=== PATIENT | female | born 1990 | race Two or more races ===

== ENCOUNTER 2017-11-18 12:18 | Inpatient (IN) | payer OTHER ==
[~2017-11-18] VITALS: Ht 157.5 cm; Wt 59.0 kg
--- NOTE | 2017-11-18 14:05 | NUR ---
PRE ASSESSMENT: Pt is A/O X4. Her gait is steady. She presents blunted with depressed mood. She denies S/I and H/I. She denies previous treatment or detox in the past. She reports using Xanax 3 mg PO daily as prescribed x 4 years. Last uses this am 1 mg. Heroin 1 Gm smoking daily X 1 month. Last used this AM.Prior to 1 month ago she states she was taking 15 tablets a day of [place] or Percocet or both. She states she doesn't know how many mg. She denies Sz hx. She denies Allergies. She reports Lupus,Asthma,Migraines, and anxiety. Will assess on unit.
[2017-11-18] MEDS ORDERED: MAG HYDROX/AL HYDROX/SIMETH 30 ML LIQUID UDC PO PRN (14:15)
[2017-11-18] MEDS ORDERED: DICYCLOMINE HCL 20 MG TABLET PO PRN (14:15)
[2017-11-18] MEDS ORDERED: LORAZEPAM 2 MG/1 ML VIAL IM PRN (14:15)
[2017-11-18] MEDS ORDERED: LORAZEPAM 1 MG TABLET PO PRN (14:15)
[2017-11-18] MEDS ORDERED: MAGNESIUM HYDROXIDE 30 ML LIQUID UDC PO PRN (14:15)
[2017-11-18] MEDS ORDERED: ONDANSETRON 4 MG/2 ML VIAL IM PRN (14:15)
[2017-11-18] MEDS ORDERED: CLONIDINE HCL 0.1 MG TABLET PO PRN (14:15)
[2017-11-18] MEDS ORDERED: LOPERAMIDE HCL 2 MG CAPSULE PO PRN ×2 (14:15)
[2017-11-18] MEDS ORDERED: ONDANSETRON ODT 4 MG TAB.RAPDIS SL PRN (14:15)
[2017-11-18] MEDS ORDERED: BUPRENORPHINE HCL 2 MG TAB.SUBL SL PRN (14:15)
[2017-11-18] MEDS ORDERED: MIRALAX 17 GM POWD.PACK PO PRN (14:15)
[2017-11-18 15:03] VITALS: BP 132/89
[2017-11-18 15:21] LABS: BASOPHILS % (AUTO) 0.3 % (0.0-2.0); EOSINOPHILS % (AUTO) 0.6 % (0.0-7.0); HEMOGLOBIN 13.5 g/dL (10.9-14.3); LYMPHOCYTES # (AUTO) 1.2 K/uL (20.0-40.0); LYMPHOCYTES % (AUTO) 27.1 % (20.5-51.5); MEAN CORPUSCULAR HEMOGLOBIN 32.7 uug (24.7-32.8); MEAN CORPUSCULAR HGB CONC 33 g/dL (32.3-35.6); MEAN CORPUSCULAR VOLUME 99.4 fL (75.5-95.3); MONOCYTES # (AUTO) 0.5 K/uL (2.0-10.0); NEUTROPHILS # (AUTO) 2.8 K/uL (1.8-8.9); PLATELET COUNT (AUTO) 338 K/uL (179-408); RED BLOOD CELL COUNT(AUTO) 4.13 MIL/uL (3.63-4.92); WHITE BLOOD COUNT (AUTO) 4.5 K/uL (3.8-11.8)
[2017-11-18 15:25] LABS: *URINE HCG, QUAL NEGATIVE (NEGATIVE)
[2017-11-18 15:27] LABS: ALANINE AMINOTRANSFERASE 25 U/L (14-59); ALKALINE PHOSPHATASE 74 U/L (50-136); ASPARTATE AMINOTRANSFERASE 16 U/L (15-37); BILIRUBIN,TOTAL 0.3 mg/dL (0.2-1.0); CARBON DIOXIDE 27 mmol/L (21-32); CHLORIDE 98 mmol/L (98-107); CREATININE 0.6 mg/dL (0.6-1.3); GLUCOSE 75 mg/dL (74-106); POTASSIUM 3.1 mmol/L (3.5-5.1); TOTAL PROTEIN, SERUM 8.6 g/dL (6.4-8.2); UREA NITROGEN, BLOOD 9 mg/dL (7-18)
[2017-11-18 15:34] LABS: ETHANOL < 3 MG/DL (0-0)
[2017-11-18 15:38] LABS: *AMPHETAMINE, URINE POSITIVE (NEGATIVE); *BARBITURATE, URINE NEGATIVE (NEGATIVE); *CANNABINOID, URINE NEGATIVE (NEGATIVE); *COCCAINE, URINE NEGATIVE (NEGATIVE); *OPIATE, URINE POSITIVE (NEGATIVE); *PHENCYCLIDINE SCREEN,URINE NEGATIVE (NEGATIVE)
[2017-11-18] MEDS ORDERED: IPRA12.9 INH (15:51)
--- NOTE | 2017-11-18 15:57 | NUR ---
ADMISSION: Pt admitted for medically supervised withdrawal of Benzo and Opiates. Her skin is warm dry and intact. and UDS collected. She is currently mildly intoxicated with pin point pupils,slightly slurred speech and slumped posture. Her gait is steady. She is A/O x 4. Her mood is apathetic and her affect congruent. No CIWA or COWS performed due to mild intoxication. She denies S/I and H/I. No Hx of Psychiatric hospitalization. BP 132/89 P 94 T 98.4 R 16 O2 sat 98% SUBSTANCE USE HISTORY: She reports using Xanax 3 mg PO daily as prescribed x 4 years. Last uses this am 1 mg. Heroin 1 Gm smoking daily X 1 month. Last used this AM 1 Gm. Prior to 1 month ago she states she was taking 15 tablets a day of [place] or Percocet or both. She states she doesn't know how many mg. She used the pills for 4 years until a month ago when she started smoking Heroin. She is positive for Amphetamines but denies using any amphetamines ever that she is aware of. Pt states she has tried to stop on her own and her withdrawal symptoms are too much for her to handle. She states she experiences sweats,chills,N/V,diarrhea,body aches and H/A. She has no treatment history. She states she has a 4 yr old daughter which is her motivation to stop using and live a clean life. She also has a fiance and the drug use has caused problems in the relationship along wit financial problems. 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 Her PCP is in [place] Dr Saeed Jimenez. She reports no allergies. She denies Seizure Hx. PMH includes Lupus(remission),Asthma,Anxiety(Xanax prescribed) ,migraines and insomnia. She takes no home medications except a rescue inhaler which she brought in. Oriented Pt to staff and unit. Will continue to monitor and offer safe and supportive environment.
[2017-11-18 16:00] VITALS: BP 116/75
--- NOTE | 2017-11-18 16:35 | NUR ---
PRN Ativan 1 mg po ,Robaxin and Motrin given for reported anxiety,mild agitation,body aches and H/A 5/10 on scale.CIWA 5. Will monitor effectiveness of PRN
[2017-11-18] MEDS: LORAZEPAM 1 MG TABLET PO PRN ×2 (16:36→23:28)
[2017-11-18] MEDS: METHOCARBAMOL 750 MG TABLET PO PRN (16:36)
[2017-11-18] MEDS: IBUPROFEN 600 MG TABLET PO PRN (16:36)
--- NOTE | 2017-11-18 17:35 | NUR ---
FABIO Ativan effective. MALLORY 3. She states she feels better and is laying in bed watching TV. Addendum: 11/18/17 at 1903 by CHAD ALBERT RN FABIO Motrin and Robaxin also effective. Pt denies pain at this time.
--- NOTE | 2017-11-18 19:16 | NUR ---
END OF SHIFT: Pt tan admitted. She is layin in bed watching TV. She was placed on a Phenobarbital/Subutex taper to manage s/s of w/d. Last CIWA 3 no s/s of Opiate w/d at this time. Will pass shift report to oncoming night nurse.
--- NOTE | 2017-11-18 19:30 | NUR ---
START OF SHIFT Received 27 year old female patient admitted on 11/18/17 for Benzodiazepine and Heroin withdrawal. Pt is alert and oriented x4. Pt noted to be drowsy and lethargic. She is arousable to name. Pt is scheduled to start a 5 day Phenobarbital and 5 day Subutex taper tomorrow 11/19/17. She received PRN Robaxin and Motrin. COWS was not assessed by AM shift nurse d/t pt was intoxicated upon admission and not experiencing opiate withdrawal. Last CIWA:3 at 1735. Breathing is even and unlabored, safety measures in place. Will monitor.
[2017-11-18 20:00] VITALS: BP 97/60
--- NOTE | 2017-11-18 20:00 | NUR ---
COWS/CIWA Unable to accurately assess COWS and CIWA. Pt noted to be drowsy and lethargic and is lying in bed asleep. Will continue to monitor.
[2017-11-18] MEDS ORDERED: POTASSIUM CHLORIDE 20 MEQ TAB.PRT.SR PO ONE (23:00)
[2017-11-18 23:25] VITALS: BP 96/58
--- NOTE | 2017-11-18 23:25 | NUR ---
PRN BENADRYL/ATIVAN Pt complains of anxiety, lightheadedness and difficulty falling asleep. CIWA:8. PRN Benadryl and Ativan 1 mg administered as ordered. Will monitor effectiveness.
--- NOTE | 2017-11-18 23:25 | NUR ---
COWS/CIWA Pt denies opiate withdrawals. Pt states " I'm not having opiate withdrawals right now." Pt reports anxiety, restlessness, lightheadedness, and inability to fall asleep. MALLORY: 8. Will monitor.
--- NOTE | 2017-11-18 23:28 | NUR ---
ONE TIME K-DUR Pt's potassium level = 3.1. MD with new order for K-DUR 40meQ. Medication administered as ordered. Will continue to monitor.
[2017-11-18] MEDS: diphenhydrAMINE 50 MG CAPSULE PO PRN (23:29)
--- NOTE | 2017-11-19 00:25 | NUR ---
PRN BENADRYL/ATIVAN REASSESSMENT PRN medication effective. Pt is lying in bed with eyes closed noted to be asleep. Breathing is even and unlabored, safety measures in place. Will continue to monitor.
[2017-11-19 04:01] VITALS: BP 98/58
--- NOTE | 2017-11-19 04:01 | NUR ---
COWS/CIWA DEFERRED Pt is lying in bed with eyes closed noted to be asleep. Breathing is even and unlabored, safety measures in place. Will continue to monitor.
--- NOTE | 2017-11-19 07:09 | NUR ---
END OF SHIFT Pt is a 27 year old female patient admitted on 11/18/17 for Benzodiazepine and Heroin withdrawal. Pt remains alert and oriented x4. Pt complained of anxiety, restlessness and difficulty sleeping. She reported that she was not experiencing opiate withdrawals during the shift. She is scheduled to start a 5 day Phenobarbital and 5 day Subutex taper today (11/19/17). At 2328 she received PRN Ativan 1 mg and Benadryl. She slept a total of 10 hrs, Intake: 500mL, Void: x1, BM:0, CIWA:8 at 2328. Unable to assess COWS during shift d/t pt denied opiate withdrawals. Breathing is even and unlabored, safety measures in place. Endorsed to AM shift.
[2017-11-19 08:00] VITALS: BP 117/80
[2017-11-19] MEDS: FOLIC ACID 1 MG TABLET PO SCH (08:04)
[2017-11-19] MEDS: MULTIVITAMINS,THERAPEUTIC TABLET PO SCH (08:04)
[2017-11-19] MEDS: THIAMINE HCL 100 MG TABLET PO SCH (08:04)
--- NOTE | 2017-11-19 08:12 | NUR ---
START OF SHIFT: Received Pt A/O X4. She states she has been awake most of night with very poor sleep. She presents with moist skin. Moderately dilated pupils noted. She reports stomach cramps,body aches,sweats,chills,restlessness and anxiety.Poor appetite noted. CIWA 17 COWS 19. PRN Ativan 2 mg po given. Subutex 4 mg SL PRN given to manage s/s of w/d.PPD planted to LFA. Encouraged rest and increased fluids today. Will continue to monitor and provide safe and supportive environment.
[2017-11-19] MEDS ORDERED: TUBERCULIN,PURIF.PROT.DERIV. 5 TU/0.1 ML TEST ID ONE (09:00)
[2017-11-19] MEDS ORDERED: 6 DAY PHENOBARBITAL TAPER -SERENITY PROTOCOL PO PRN (09:00)
[2017-11-19] MEDS ORDERED: PHENOBARBITAL 60 MG TABLET PO SCH (09:00)
--- NOTE | 2017-11-19 09:10 | NUR ---
Pt states the Subutex and Ativan PRN were mildly effective. COWS 14 CIWA 15. Will continue to monitor and medicate as ordered.
[2017-11-19] MEDS: PHENOBARBITAL 60 MG TABLET PO SCH ×3 (10:20→21:24)
[2017-11-19] MEDS: BUPRENORPHINE HCL 2 MG TAB.SUBL SL SCH ×4 (10:21→21:27)
[2017-11-19] MEDS: IBUPROFEN 600 MG TABLET PO PRN (11:13)
[2017-11-19] MEDS: CLONIDINE HCL 0.1 MG TABLET PO PRN (11:13)
[2017-11-19] MEDS: METHOCARBAMOL 750 MG TABLET PO PRN ×2 (11:13→21:24)
--- NOTE | 2017-11-19 11:15 | NUR ---
PRN Bentyl,Robaxin,Motrin, and Clonidine given for reported stomach cramps,muscle aches,h/a 5/10 on pain scale and anxiety. Will monitor effectiveness of PRNS.
[2017-11-19 12:00] VITALS: BP 111/67
--- NOTE | 2017-11-19 12:15 | NUR ---
PRN meds effective. Pt states her H/A is gone and she feels a little better. Will continue to monitor and manage s/s of w/d.
[2017-11-19 16:00] VITALS: BP 100/60
--- NOTE | 2017-11-19 18:39 | NUR ---
END OF SHIFT: Pt started on Pheno/Subutex taper today to manage s/s of w/d which include anxiety,sweats, chills, body aches,stomach cramps and restlessness. She presents with anxious mood and congruent affect. Last CIWA 14 COWS 13. She was given Ativan and Subutex PRN early this AM which was mildly effective. She was given PRN Bentyl,Motrin,Clonidine and Robaxin this afternoon to assist in managing symptoms which were effective. She was compliant with rest and increased fluids today. [facility].
--- NOTE | 2017-11-19 19:30 | NUR ---
START OF SHIFT Pt is a 27 y/o female admitted on 11/18/17 for opiate and benzo withdrawal. Pt continues with a 5 day Phenobarbital and 5 day Subutex taper, tolerating well. Last COWS 13 and CIWA 14. PRN Subutex, Bentyl, Clonidine, Motrin, and Robaxin were administered during the day with medication, noted to be effective. Upon rounds Pt was found laying in bed with eyes closed, room was unkempt, food and drinks noted throughout cluster on bedside table. Medications due. Safety measures in place. Call light within reach. Will continue to monitor
[2017-11-19 20:30] VITALS: BP 126/77
[2017-11-19] MEDS ORDERED: PATIENT MAY USE OWN MED- MD OK INH SCH (21:00)
[2017-11-19] MEDS: diphenhydrAMINE 50 MG CAPSULE PO PRN (21:24)
[2017-11-20 00:20] VITALS: BP 100/61
[2017-11-20] MEDS: IBUPROFEN 600 MG TABLET PO PRN ×2 (00:36→08:43)
[2017-11-20] MEDS: HYDROXYZINE PAMOATE 25 MG CAPSULE PO PRN ×2 (00:37→12:14)
--- NOTE | 2017-11-20 00:37 | NUR ---
PRN Medication Administration Patient noted awake and verbalizing of increased restless legs with increased pain and anxiety. PRN Motrin and Vistaril administered. Will continue to monitor.
--- NOTE | 2017-11-20 01:28 | NUR ---
PRN Medication Reassessment Patient is noted in bed sleeping. breathing even and non labored. No signs of restlessness noted. PRN Motrin and Vistaril noted to be effective. Will continue to monitor.
[2017-11-20] MEDS ORDERED: IPRATROPIUM BROMIDE 0.5 MG/2.5 ML NEBU NEB SCH (01:30)
--- NOTE | 2017-11-20 04:00 | NUR ---
VITALS REFUSED COWS and CIWA DEFERRED Pt noted in bed with eyes closed. Attempted to run vitals, Pt refused. Respiration rate 16. Cows and CIWA unable to be completed per order. Safety measures in place. Call light within reach. Will continue to monitor. Addendum: 11/20/17 at 0428 by CISCO JERONIMO RN Amended: Links added.
--- NOTE | 2017-11-20 07:25 | NUR ---
END OF SHIFT Pt is a 27 y/o female admitted on 11/18/17 for opiate and benzo withdrawal. Pt continues with a 5 day Phenobarbital and 5 day Subutex taper, tolerating well. Pt presented with agitation, restlessness, anxiety, body aches, headache, room was unkempt, food and drinks noted throughout cluster on bedside table. Scheduled medications and PRN Robaxin, Vistaril, Motrin, and Benadryl were administered. Medications effective as verbalized by Pt. Last COWS 10 CIWA 13. Pt slept 9 hours. Intake 1000mls, void x 1, stool x 0. Safety measures in place. Call light within reach. Will continue to monitor. Pt's needs have been met. Endorsed to the day shift nurse.
[2017-11-20 08:00] VITALS: BP 100/60
[2017-11-20] MEDS ORDERED: IPRATROPIUM BROMIDE 0.5 MG/2.5 ML NEBU NEB PRN (08:00)
--- NOTE | 2017-11-20 08:19 | NUR ---
START OF SHIFT: Received Pt A/O X4. She states she slept well with the help of Benadryl given last night. She presents with anxious mood and congruent affect. She reports anxiety,restlessness,intermittent sweats and chills and body aches. CIWA 15 COWS 12. Will administer PRN Motrin and Robaxin to assist in managing body aches. Encouraged increased fluids. Encouraged group attendance to improve coping skills and prevent relapse. Will continue to monitor and provide safe and supportive environment.
[2017-11-20] MEDS: METHOCARBAMOL 750 MG TABLET PO PRN (08:43)
[2017-11-20] MEDS: THIAMINE HCL 100 MG TABLET PO SCH (08:43)
[2017-11-20] MEDS: FOLIC ACID 1 MG TABLET PO SCH (08:43)
[2017-11-20] MEDS: PHENOBARBITAL 60 MG TABLET PO SCH ×4 (08:43→20:16)
[2017-11-20] MEDS: MULTIVITAMINS,THERAPEUTIC TABLET PO SCH (08:43)
[2017-11-20] MEDS: BUPRENORPHINE HCL 2 MG TAB.SUBL SL SCH ×3 (08:44→20:16)
--- NOTE | 2017-11-20 09:19 | NUR ---
PRN Motrin and Robaxin effective. pt states her body aches have lessened. Will continue to monitor and offer support.
[2017-11-20 10:10] LABS: HEPATITIS B SURFACE AG Negative (Negative)
--- NOTE | 2017-11-20 11:02 | NUR ---
Endorsed Pt to staff nurse. All pertinent information discussed fr continuity of care.
[2017-11-20 12:00] VITALS: BP 121/84
--- NOTE | 2017-11-20 12:00 | NUR ---
COW's/CIWA assessment COW's 11/ CIWA 12. Pt. presents with anxiety, restlessness, HR of 103, dilated pupils, body aches, and some nasal congestion. Pt. compliant with medication regiment. Pt. Given PRN Vistaril, and Clonidine at this time to help with her withdrawal symptoms.
[2017-11-20] MEDS: CLONIDINE HCL 0.1 MG TABLET PO PRN ×2 (12:13→20:17)
--- NOTE | 2017-11-20 12:13 | NUR ---
PRN Medication Pt. presents with increased anxiety at this time. Pt. in bed constantly moving, and states " I have this sense of dread and it's making me very anxious." Pt. given PRN Vistaril 50mg and Clonidine 0.1mg at this time to help manage her symptoms. Will continue to monitor pt.'s behavior for medication effectiveness and safety.
[2017-11-20 12:25] LABS: BILIRUBIN,TOTAL 0.4 mg/dL (0.2-1.0); CREATININE 0.7 mg/dL (0.6-1.3); MAGNESIUM 1.7 mg/dL (1.8-2.4); POTASSIUM 3.9 mmol/L (3.5-5.1); TOTAL PROTEIN, SERUM 8.3 g/dL (6.4-8.2)
--- NOTE | 2017-11-20 12:50 | NUR ---
PRN Re-Assessment Pt. in bed with eyes closed. No signs of acute distress noted no signs of SOB noted. Medication effective. Will continue to monitor pt.'s behavior for safety.
[2017-11-20] MEDS ORDERED: MAGNESIUM OXIDE 400 MG TABLET PO ONE (13:00)
[2017-11-20 16:00] VITALS: BP 97/58
--- NOTE | 2017-11-20 16:00 | NUR ---
COW's/CIWA assessment COW's 11/ CIWA 11. Pt. presents with anxiety, restlessness, fine hand tremors, and body aches. Pt. compliant with medication regiment and treatment plan at this time. Will continue to monitor pt.'s behavior for safety.
--- NOTE | 2017-11-20 16:27 | NUR ---
Client was prompted to attend twice daily group therapy sessions.
--- NOTE | 2017-11-20 19:10 | NUR ---
End of Shift Note Pt. is a 27 y/o female admitted for the medically managed withdrawal from opiates and benzodiazepines. Pt. was placed on a 5 day subutex taper and 5 day phenobarbital taper to managed withdrawal symptoms. Pt. compliant with treatment plan and medication regiment. Throughout shift pt. was noted at continually anxious, restless, with fine hand tremors and body aches. Pt. was given PRN Motrin, Robaxin, Clonidine, and Vistaril to manage withdrawal symptoms. Last COW's 11 and CIWA 11 at 1600. Safety measures in place. Will endorse pt.'s care to oncoming shift.
--- NOTE | 2017-11-20 19:30 | NUR ---
Start of Shift Patient Received. Patient is noted in her room, awake, alert, verbally responsive, and watching TV. Patient is able to verbalize "my anxiety is high. It has been high all day. It is really the only thing that is bothering me." Encouraged patient to possibly get out of her room, walk around, go outside for fresh air to eliminate anxiety prior to medication. Patient verbalized understanding. Per endorsement, patient continues on a 5 day Phenobarbital and 5 day Subutex taper. she was given PRN Vistaril, Clonidine, and Motrin with medications noted to be effective. Patient also noted to be High risk for AMA due patient stating medications were not effective in minimizing anxiety. Last noted COWS 11 and CIWA 11. All needs attended to promptly.
[2017-11-20 20:07] VITALS: BP 110/74
[2017-11-20] MEDS: diphenhydrAMINE 50 MG CAPSULE PO PRN (20:16)
--- NOTE | 2017-11-20 20:20 | NUR ---
PRN Medication Administration/MD Communication Patient is noted verbalizing increase chills and sweats, pulse rate between 81-100, tremulous to touch, frequently shifting, mild discomfort, yawning, and verbalizing increased anxiety. She is also verbalizing inability of falling asleep. Patient states "i feel like my biggest problems now is my anxiety and my insomnia." Patient is able to explain "the Benadryl helped me last night but I still dont feel rested in the morning." Explained to patient the Psychiatrist would be made aware. Patient verbalized understanding. She also verbalized of scant bleeding while urination. No pain or discomfort during urination. no frequency or noted urgency of urination verbalized. Patient states "I dont know if it is because of menstruation." Relayed to MD with order for Urine analysis. COWS 10 and CIWA 15. PRN Clonidine and Benadryl administered with routine medications. Patient verbalized understanding of providing urine sample. Will continue to monitor.
--- NOTE | 2017-11-20 21:20 | NUR ---
PRN Medication Reassessment Patient is noted in bed with eyes closed. Breathing even and non labored. No signs restlessness noted. No facial grimacing noted. PRN Clonidine and Benadryl noted to be effective. Will continue to monitor.
[2017-11-21 00:39] VITALS: BP 98/71
--- NOTE | 2017-11-21 00:41 | NUR ---
COWS and CIWA Assessment Patient is noted in bed sleeping. She is able to be aroused upon entering room. Explained to patient vitals were ordered to be rendered. Vitals rendered. patient is noted to fall asleep easily. Unable to complete CIWA or COWS assessment due to patient falling asleep. Will continue to monitor.
[2017-11-21 04:15] VITALS: BP 97/53
--- NOTE | 2017-11-21 04:15 | NUR ---
COWS and CIWA Assessment Patient is noted in bed sleeping but aroused to verbal stimuli. Breathing even and non labored. Explained to patient that vitals were ordered. Vitals rendered. Unable to complete COWS and CIWA due to patient sleeping. Will continue to monitor.
--- NOTE | 2017-11-21 07:08 | NUR ---
End of Shift Patient is noted in bed with her eyes closed. Breathing even and non labored. Patient continues on modified Phenobarbital taper and Subutex taper. She was noted verbalizing increased chills and sweats, increased anxiety, restlessness and verbalizing insomnia. PRN Clonidine and Benadryl administered with medications noted to be effective. Encouraged patient to get out of her room, walk around, go outside fro fresh air due to patient being isolative and causing increased anxiety. Last noted COWS 10 and CIWA 15. Patient noted to sleep 8 hours. All needs attended to promptly. Will endorse to continue plan of care as ordered.
--- NOTE | 2017-11-21 07:15 | NUR ---
Start Of Shift Patient is a 27 yr old female who was admitted to [facility] on 11/18/17 for a medically supervised withdrawal from Opiates ( Heroin) and Benzodiazepines( Xanax), she has been placed on a 5 day Phenobarbital taper and 5 day Subutex taper and this is day 3. She is awake in bed at this time and voices complaints of having blood on toilet paper after she wipes after urinating, Urine specimen obtained and sent to lab for urinalysis, she denies any pain or discomfort in area. PRN meds given on PM shift : Clonidine and Benadryl, last COWS 10 and CIWA 15 and she slept for 8 hours. Will continue to follow MD plan of care and offer support as needed.
--- NOTE | 2017-11-21 07:20 | NUR ---
Start of shift: Patient is a 27 yr old female who was admitted to [facility] on 11/18/17 for a medically supervised withdrawal from Opiates ( Heroin) and benzodiazepines ( Xanax). She has been placed on a 5 day Phenobarbital taper and 5 day Subutex taper and this is day
[2017-11-21 08:00] VITALS: BP 107/69
--- NOTE | 2017-11-21 08:00 | NUR ---
COWS 17 Patient's withdrawal symptoms present as severe anxiety, bilateral hand tremors, back and generalized muscle aches, sensitivity to light, encouraged patient to attend groups today and learn new coping skills and ways to manage anxiety without pharmaceutical aids, she agreed.
[2017-11-21 08:05] LABS: *BILIRUBIN,URIN NEGATIVE (NEGATIVE); *BLOOD, URINE Trace-lysed (NEGATIVE); *CLARITY,URINE CLOUDY (CLEAR); *COLOR,URINE YELLOW (YELLOW); *KETONES,URINE NEGATIVE (NEGATIVE); *PROTEIN,URINE 1+ (NEGATIVE); *UROBILINOGEN,URINE 0.2 E.U./dl (NORMAL); LEUKOCYTE ESTERASE ,URINE 3+ (NEGATIVE); NITRITE, URINE NEGATIVE (NEGATIVE); PH,URINE 8.5 (5.0-8.0); UGLUCOSE NEGATIVE (NEGATIVE)
[2017-11-21 08:07] LABS: BACTERIA,URINE FEW /HPF (NONE SEEN); SQUAMOUS EPITHELIAL CELL,UR MANY /HPF (NONE SEEN)
--- NOTE | 2017-11-21 08:20 | NUR ---
PRN Motrin/Robaxin Motrin 600MG PO and Robaxin 750 MG PO given for complaints of generalized body aches and back ache, pain level 7/10 will monitor and reassess
[2017-11-21] MEDS: MULTIVITAMINS,THERAPEUTIC TABLET PO SCH (08:21)
[2017-11-21] MEDS: METHOCARBAMOL 750 MG TABLET PO PRN (08:21)
[2017-11-21] MEDS: THIAMINE HCL 100 MG TABLET PO SCH (08:21)
[2017-11-21] MEDS: IBUPROFEN 600 MG TABLET PO PRN ×2 (08:21→14:22)
[2017-11-21] MEDS: FOLIC ACID 1 MG TABLET PO SCH (08:21)
[2017-11-21] MEDS: PHENOBARBITAL 60 MG TABLET PO SCH ×3 (08:22→20:57)
[2017-11-21] MEDS ORDERED: BUPRENORPHINE HCL 2 MG TAB.SUBL SL SCH (09:00)
--- NOTE | 2017-11-21 09:20 | NUR ---
PRN Reassess Motrin 600 MG PO and Robaxin 750 MG PO effective per pt report for easing joint and muscle pain , pain level now 3/10 will continue to monitor
--- NOTE | 2017-11-21 10:30 | NUR ---
PRN Vistaril Vistaril 50 MG PO given for reports of increased anxiety and agitation, will continue to assess and monitor
[2017-11-21] MEDS: HYDROXYZINE PAMOATE 25 MG CAPSULE PO PRN (10:31)
--- NOTE | 2017-11-21 11:30 | NUR ---
PRN Reassess Patient states that Vistaril 50 MG PO was effective in reducing her anxiety, she was able to go to group and interact with her peers.
[2017-11-21 12:00] VITALS: BP 123/73
--- NOTE | 2017-11-21 12:10 | NUR ---
COWS 11/ CIWA 16 Patient presents with increased agitation and anxiety , restlessness, general body aches, bilateral hand tremors and lethargy. Motrin, Robaxin and Vistaril were given in AM with positive effects in reducing general pain and anxiety levels.
--- NOTE | 2017-11-21 14:20 | NUR ---
PRN Medication Motrin 600 MG PO and Tylenol 650 MG PO given for complaints of headache and sinus discomfort 10/12 Clonidine 0.1mg PO given for reports of increased anxiety, will continue to assess and monitor
[2017-11-21] MEDS: ACETAMINOPHEN 325 MG TABLET PO PRN (14:22)
[2017-11-21] MEDS: BUPRENORPHINE HCL 2 MG TAB.SUBL SL SCH ×2 (14:23→20:58)
[2017-11-21] MEDS: CLONIDINE HCL 0.1 MG TABLET PO PRN ×2 (14:23→20:58)
--- NOTE | 2017-11-21 15:20 | NUR ---
PRN Reassess Patient states she feels less sinus pressure so motrin and tylenol effective, clonidine also effective in reducing anxiety per pt report
[2017-11-21 16:00] VITALS: BP 117/58
--- NOTE | 2017-11-21 16:00 | NUR ---
COWS 9/ CIWA 15 Patient presents with increased agitation and anxiety , restlessness, general body aches,sinus pressure, bilateral hand tremors and lethargy. Motrin, Tylenol and Clonidine were given in afternoon with positive effects in reducing general pain and anxiety levels.
--- NOTE | 2017-11-21 18:51 | NUR ---
End Of Shift: Patient is a 27 yr old female admitted to [facility] on 11/18/17 for a medically supervised withdrawal from heroin and Xanax. She is on a 5 day phenobarbital taper and 5 day Subutex taper and this is day3. She has been more active today and has attended all groups and has been interacting with her peers. PRN medication given today : Motrin, Robaxin, Vistaril, Tylenol and clonidine. her withdrawal symptoms present as severe anxiety, bilateral hand tremors, body aches, stuffy nose and irritability. She had a fluid intake of 1800 ML, 4 voids and 0 BM .Last COWS 9 and CIWA 15 @ 1600. Continue to follow MD plan of care and offer support as needed. Endorsed to night baker.
[2017-11-21 19:19] LABS: *BILIRUBIN,URIN NEGATIVE (NEGATIVE); *BLOOD, URINE 2+ (NEGATIVE); *CLARITY,URINE SLIGHTLY CLOUDY (CLEAR); *COLOR,URINE YELLOW (YELLOW); *KETONES,URINE TRACE (NEGATIVE); *PROTEIN,URINE NEGATIVE (NEGATIVE); *UROBILINOGEN,URINE 0.2 E.U./dl (NORMAL); LEUKOCYTE ESTERASE ,URINE 3+ (NEGATIVE); NITRITE, URINE NEGATIVE (NEGATIVE); UGLUCOSE NEGATIVE (NEGATIVE)
--- NOTE | 2017-11-21 19:30 | NUR ---
Start of shift Patient Received. Patient is noted in the activities room participating in a group meeting. Per endorsement, patient continues on a modified Phenobarbital and Subutex tapers. patient was noted participating in group and social activities. PRN Motrin x2, Robaxin, Vistaril, Tylenol and Clonidine with medications noted to be effective. Orders for UA with Urine collected with no new orders noted. Will follow up with MD. Last noted COWS 9 and CIWA 15. All needs attended to promptly. Will continue plan of care as ordered.
[2017-11-21 19:50] LABS: BACTERIA,URINE MODERATE /HPF (NONE SEEN); MUCUS,URINE MANY /LPF (0-FEW); SQUAMOUS EPITHELIAL CELL,UR MODERATE /HPF (NONE SEEN); WBC,URINE 80-100 /HPF (0-3)
[2017-11-21 20:28] VITALS: BP_SYST 113; BP_DIAS 60; BP_DIAS 70
[2017-11-21] MEDS: diphenhydrAMINE 50 MG CAPSULE PO PRN (20:57)
--- NOTE | 2017-11-21 21:00 | NUR ---
PRN Medication Administration Patient is noted verbalizing inability of falling asleep, increased anxiety, increased chills and sweats. COWS noted to be 9 and CIWA 11. PRN Benadryl and Clonidine administered with routine medications. Will continue to monitor.
--- NOTE | 2017-11-21 22:00 | NUR ---
PRN Medication Reassessment Patient is noted in bed with eyes closed. breathing even and non labored. Patient received PRN Clonidine and Benadryl with medication noted to be effective. No facial grimacing or restlessness noted. Will continue to monitor.
[2017-11-22 00:45] VITALS: BP 104/60
--- NOTE | 2017-11-22 00:46 | NUR ---
COWS and CIWA Assessment patient is noted in bed with eyes closed. Breathing even and non labored. upon entering room patient is able to be aroused to verbal stimuli. explained to patient that vitals were ordered. Vitals rendered. She was noted to easily fall back to sleep with no complications noted. No facial grimacing or restlessness noted. CIWA and COWS not able to be completed as per order. Will continue to monitor.
[2017-11-22 04:24] VITALS: BP 107/68
[2017-11-22] MEDS: HYDROXYZINE PAMOATE 25 MG CAPSULE PO PRN ×2 (04:27→23:00)
[2017-11-22] MEDS: METHOCARBAMOL 750 MG TABLET PO PRN ×2 (04:27→21:08)
--- NOTE | 2017-11-22 04:30 | NUR ---
PRN Medication Administration Patient is noted awake and verbalizing increased anxiety and increased body aches. PRN Vistaril and Robaxin administered. Will continue to monitor.
--- NOTE | 2017-11-22 05:30 | NUR ---
PRN Medication Administration Patient is noted in bed awake alert and verbally responsive. Breathing even and non labored. patient received PRN Vistaril and Robaxin for increased anxiety and muscle cramps. Patient is able to verbalize "I feel much better. the medication helped." Medications noted to be effective. Will continue to monitor. Addendum: 11/22/17 at 0700 by TAMIKA TAMEZ LVN PRN MEDICATION REASSESSMENT
--- NOTE | 2017-11-22 07:16 | NUR ---
End of Shift Patient is noted in bed, awake, alert and verbally responsive. Breathing even and non labored. Patient continues on a modified Phenobarbital and Subutex tapers. Patient was noted to be compliant with group and social activities prior to bed. Patient requires further education on coping skills to manage anxiety. PRN Benadryl Clonidine, Vistaril and Robaxin administered with medications noted to be effective. Last noted CIWA 9 and COWS 7. Patient noted to sleep a total of 7 hours. All needs attended to promptly. Will continue plan of care as ordered.
--- NOTE | 2017-11-22 07:53 | NUR ---
BEGINNING OF SHIFT Patient endorsement report received from operations supervisor 2nd shift nurse, all pertinent information was discussed. Patient with admitting Dx: Opiate/BZO withdrawal. Continues on 5 day phenobarbital and 5 day Subutex taper as ordered, patient is scheduled to begin day: 4 of taper. Patient slept for a total of 7 hours, per operations supervisor 2nd shift noted with poor sleep, will notify psychiatrist. Patient with last CIWA score of: 9, and last cow score of: 7. patient received PRN:Benadryl, clonidine, Vistaril and Robaxin as ordered medication effective. Patient received awake, alert and oriented x4, educated regarding plan of care for the day and mediation regimen with good verbal understanding. Safety measures in place, call light kept with in reach. will continue to monitor closely.
[2017-11-22 08:46] VITALS: BP 93/64
--- NOTE | 2017-11-22 09:00 | NUR ---
COW/CIWA ASSESSMENT patient awake, alert and oriented x4, in room, noted with avoidant eye contact, has sad and irritable facial expression. Noted with flat affect, labile mood. Patient continues on 5 day phenobarbital taper and 5 day Subutex, continues on day 4 of taper. Patient presented with the following s/sx of withdrawal: c/o chills, difficulty sitting still, restless, enlarged pupils, bone and joint aches, moist eyes, tremors, yawning, anxiety, irritability, difficulty concentrating, difficulty sleeping, frequent nocturnal awakenings, generalized discomfort, and increased emotional amplitude. Patient with COW score of: 9, and CIWA score of: 11. Encouraged to increase PO fluid intake as tolerated. Encouraged to attend group therapies/sessions to learn new coping skills to prevent relapse. safety measures in place. call light kept with in reach, will continue to monitor.
[2017-11-22] MEDS: PHENOBARBITAL 60 MG TABLET PO SCH ×2 (09:14→21:08)
[2017-11-22] MEDS: THIAMINE HCL 100 MG TABLET PO SCH (09:14)
[2017-11-22] MEDS: FOLIC ACID 1 MG TABLET PO SCH (09:14)
[2017-11-22] MEDS: BUPRENORPHINE HCL 2 MG TAB.SUBL SL SCH ×3 (09:14→21:09)
[2017-11-22] MEDS: MULTIVITAMINS,THERAPEUTIC TABLET PO SCH (09:14)
--- NOTE | 2017-11-22 13:00 | NUR ---
COW/CIWA ASSESSMENT Patient continues to exhibit the following s/sx of withdrawal: c/o chills, difficulty sitting still, restless, enlarged pupils, bone and joint aches, moist eyes, tremors, yawning, anxiety, irritability, difficulty concentrating, difficulty sleeping, frequent nocturnal awakenings, generalized discomfort, and increased emotional amplitude. Patient with COW score of: 9, and CIWA score of: 11. Scheduled medications administered as ordered, will continue to monitor.
[2017-11-22 13:26] VITALS: BP 122/78
--- NOTE | 2017-11-22 15:51 | NUR ---
PSYCHIATRIST COMMUNICATION Dr. Quintana notified that patient is having difficulty staying asleep, wakes up frequently, and difficulty falling asleep. Patient reported to nurse, that in the past she has taken Trazodone unknown strength for insomnia, and it has been effective. As per Dr. Quintana ok for patient to begin Trazodone 100 mg PO HS PRN, for insomnia. Dr. Quintana unable to input orders into [id number] at this time, order was read back and verified by dr. Quintana, noted and carried out.
[2017-11-22 16:40] VITALS: BP 122/78
--- NOTE | 2017-11-22 17:01 | NUR ---
COW/CIWA ASSESSMENT Patient continues to exhibit the following s/sx of withdrawal: c/o chills, difficulty sitting still, restless, enlarged pupils, bone and joint aches, moist eyes, tremors, yawning, anxiety, irritability, difficulty concentrating, difficulty sleeping, frequent nocturnal awakenings, generalized discomfort, and increased emotional amplitude. Patient with COW score of: 9, and CIWA score of: 11. Will continue to monitor.
--- NOTE | 2017-11-22 18:57 | NUR ---
END OF SHIFT Patient alert and oriented x4, monitored closely during shift. Patient continues with ongoing Subutex and phenobarbital taper as ordered. Admitting Dx: Opiate/bzo withdrawal. Noted with avoidant eye contact, has sad and irritable facial expression. Noted with flat affect, labile mood. Patient presented with the following s/sx of withdrawal: c/o chills, difficulty sitting still, restless, enlarged pupils, bone and joint aches, moist eyes, tremors, yawning, anxiety, irritability, difficulty concentrating, difficulty sleeping, frequent nocturnal awakenings, generalized discomfort, and increased emotional amplitude. Patient with COW score of: 9, and CIWA score of: 11.Encouraged to develop coping skills and utilization of non pharmacological interventions. Adequate PO fluid intake encouraged as tolerated. patient endorsed to shift foreman nurse, all pertinent information was discussed.
--- NOTE | 2017-11-22 19:10 | NUR ---
START OF SHIFT Patient is a 27-year-old female admitted on 11/18/17 for benzo and opiate withdrawal. Patient is currently on a 5-day Phenobarbital taper and a 5-day Subutex taper, tolerating well; today is day 4 of both tapers. Per endorsement, patient's last COWS was 10, last CIWA was 11. Patient received no PRN medications during day shift. Patient currently has urine cultures pending to rule out UTI. Upon assessment, patient appears disheveled, hair and make-up are untidy. Patient is alert and oriented x4, complaining of increased anxiety and generalized body aches, 7/10 on pain scale. Patient states that PRN Benadryl "had been working for the first few nights, but it stopped working last night and I couldn't really sleep." Patient is currently on fall and seizure precautions with no history of seizure. Safety measures are in place, side rails up x2, bed locked in low position, call light within reach. Will continue to monitor.
[2017-11-22 20:00] VITALS: BP 128/81
--- NOTE | 2017-11-22 20:00 | NUR ---
COWS 11 & CIWA 11 Patient currently has a COWS of 11 and a CIWA score of 11. Patient reports increased anxiety, agitation, intermittent diaphoresis, body aches, and difficulty sleeping. SN to administer meds as ordered. Will continue to monitor.
[2017-11-22] MEDS ORDERED: TRAZODONE 100 MG TABLET PO PRN (21:00)
--- NOTE | 2017-11-22 21:08 | NUR ---
PRN ROBAXIN & TRAZODONE Patient reports body aches 7/10 and difficulty sleeping. PRN Robaxin and PRN Trazodone both given PO. Safety measures in place, side rails up x2, bed locked in low position, call light within reach. Will monitor for effectiveness.
--- NOTE | 2017-11-22 22:08 | NUR ---
PRN ROBAXIN & TRAZODONE REASSESSMENT Patient reports body aches have improved, now /. Patient states that she feels sleepy. PRN medications noted to be effective at this time. Safety measures in place, side rails up x2, bed locked in low position, call light within reach. Will continue to monitor.
[2017-11-22] MEDS: CLONIDINE HCL 0.1 MG TABLET PO PRN (23:00)
--- NOTE | 2017-11-22 23:00 | NUR ---
PRN VISTARIL & CLONIDINE Patient reports anxiety, agitation, and restlessness. PRN Vistaril and Clonidine given PO. Safety measures in place, side rails up x2, bed locked in low position, call light within reach. Will monitor for effectiveness.
[2017-11-23] VITALS: BP 78/46
--- NOTE | 2017-11-23 | NUR ---
PRN REASSESSMENT, COWS & CIWA Patient reports decreased anxiety, agitation, and restlessness. PRN medications noted to be effective. Current COWS score is 10, CIWA score is 10. Patient reports mild anxiety, mild body aches, and mild symptoms due to PRN medication effectiveness. Safety measures in place, side rails up x2, bed locked in low position, call light within reach. Will continue to monitor.
[2017-11-23 04:00] VITALS: BP 84/52
--- NOTE | 2017-11-23 04:00 | NUR ---
COWS & CIWA DEFERRED COWS and CIWA deferred at this time due to patient sleeping; to be assessed while patient is awake, per protocol. Safety measures in place, side rails up x2, bed locked in low position, call light within reach. Will continue to monitor.
--- NOTE | 2017-11-23 07:04 | NUR ---
END OF SHIFT Patient is a 27-year-old female admitted on 11/18/17 for benzo and opiate withdrawal. Patient is currently on a 5-day Phenobarbital taper and a 5-day Subutex taper, tolerating well; today will be the last day of both tapers. Patient's last COWS was 10, last CIWA was 10. Patient received PRN Robaxin, Trazodone, Vistaril, and Clonidine; all noted to be effective. Patient slept for 7 hours, total intake of 1,710mL, void x2, stool x0. Patient's urine cultures are still pending. Patient is currently on fall and seizure precautions with no history of seizure. Safety measures are in place, side rails up x2, bed locked in low position, call light within reach. Will endorse to day shift.
[2017-11-23 07:16] LABS: CREATININE 0.7 mg/dL (0.6-1.3); MAGNESIUM 1.9 mg/dL (1.8-2.4); POTASSIUM 3.8 mmol/L (3.5-5.1)
--- NOTE | 2017-11-23 07:20 | NUR ---
Start Of Shift Patient is a 27 yr old female [facility] a medically supervised withdrawal from Opiates ( heroin) and benzodiazepines ( Xanax), she has been placed on a 5 day Phenobarbital taper and 5 day Subutex taper and today is day 5. She has a past medical history of Lupus which is in remission.She is awake at this time just after having a shower, she voices that she still has anxiety but it is controlled with Vistaril and Clonidine. PRN medications given on PM shift : Vistaril, Clonidine, Robaxin and Trazodone. She slept for 7 hours and her last COWS was 10 and CIWA 10 on PM shift. Continue to follow MD plan of care and offer support as needed.
[2017-11-23 08:00] VITALS: BP 106/60
--- NOTE | 2017-11-23 08:00 | NUR ---
COWS 7 / CIWA 10 Patients withdrawal symptoms include increased anxiety, tachycardia, restlessness, difficulty staying asleep, and joint pain. PRN Robaxin given along with warm packs for the hip pain along with scheduled Phenobarbital and Subutex. will monitor
[2017-11-23] MEDS: MULTIVITAMINS,THERAPEUTIC TABLET PO SCH (08:19)
[2017-11-23] MEDS: THIAMINE HCL 100 MG TABLET PO SCH (08:19)
[2017-11-23] MEDS: METHOCARBAMOL 750 MG TABLET PO PRN ×2 (08:19→16:52)
[2017-11-23] MEDS: FOLIC ACID 1 MG TABLET PO SCH (08:19)
--- NOTE | 2017-11-23 08:20 | NUR ---
PRN Robaxin Robaxin 750 MG PO given for muscle aches in left hip 12/12, will reassess
[2017-11-23] MEDS ORDERED: TRAZODONE 100 MG TABLET PO PRN (08:45)
[2017-11-23] MEDS ORDERED: BUPRENORPHINE HCL 2 MG TAB.SUBL SL SCH (09:00)
[2017-11-23] MEDS ORDERED: PHENOBARBITAL 60 MG TABLET PO SCH (09:00)
--- NOTE | 2017-11-23 09:20 | NUR ---
PRN Reassess Robaxin effective along with warm pack to hip per pt report, pain level now 4/10 Continue to monitor
[2017-11-23] MEDS: HYDROXYZINE PAMOATE 25 MG CAPSULE PO PRN ×2 (10:59→21:46)
[2017-11-23] MEDS: IBUPROFEN 600 MG TABLET PO PRN ×2 (10:59→21:46)
[2017-11-23] MEDS: ACETAMINOPHEN 325 MG TABLET PO PRN (10:59)
--- NOTE | 2017-11-23 11:00 | NUR ---
PRN Motrin 600MG PO/Tylenol 650 MG PO given for hip pain 5/10 Vistaril 50 MG Po given for reprts of increased anxiety. will reassess
[2017-11-23 12:00] VITALS: BP 122/74
--- NOTE | 2017-11-23 12:00 | NUR ---
PRN Reassess Vistaril 50 MG Po effective, Pulse rate is now 60 and patient states she feels less anxious Motrin and Tylenol effective, pain is now 3/10 Continue to monitor
--- NOTE | 2017-11-23 12:00 | NUR ---
COWS 6/ CIWA 10 Withdrawal symptoms include increased anxiety and irritability, joint / muscle pain, lethargy and restlessness Robaxin, Motrin and Tylenol were effective in alleviating muscle / joint pain and Vistaril 50mg PO was effective in reducing anxiety and irritability.
[2017-11-23] MEDS ORDERED: CIPR250T4 PO (14:16)
[2017-11-23] MEDS ORDERED: TRAZ-214 PO (14:19)
--- NOTE | 2017-11-23 14:32 | NUR ---
Client was prompted to attend twice daily group therapy sessions.
[2017-11-23 16:00] VITALS: BP 102/63
[2017-11-23] MEDS: CLONIDINE HCL 0.1 MG TABLET PO PRN (16:52)
--- NOTE | 2017-11-23 17:00 | NUR ---
PRN Robaxin/Clonidine Robaxin 750mg PO given for left side hip pain 6/10 Clonidine given for increased anxiety/agitation will reassess
--- NOTE | 2017-11-23 17:00 | NUR ---
COWS 6/CIWA 10 withdrawal symptoms present as body/joint aches, restlessness, increased anxiety and irritability. Robaxin 750 MG Po given for body aches and Clonidine 0.1MG PO given for anxiety/agitation
--- NOTE | 2017-11-23 19:07 | NUR ---
End Of Shift: Patient is a 27 yr old female who was admitted to [facility] on 11/18/17 for a medically supervised withdrawal from Heroin and Xanax. She has completed a 5 day Phenobarbital / Subutex taper and is to discharged tomorrow to [facility]. She still displays increased anxiety at times and withdrawal symptoms present as joint/muscle aches , tachycardia, diaphoresis and restlessness. Urine culture results are positive for " Proteus Mirabilis", MD has placed an order for CIPRO 500 MG Po to start tonight. PRN Medications given on this shift: Robaxin x2, Motrin, Tylenol, Vistaril and Clonidine. She has attended all groups today and is interacting with her peers. She had a fluid intake of 2200 ML,5 Voids and 2 BM. Last COWS 6 and CIWA 10 @ 1700. Continue to follow MD plan of care and offer support as needed. Endorsed to night time babysitter.
--- NOTE | 2017-11-23 19:30 | NUR ---
START OF SHIFT Patient is a 27 y/o female admitted for a medically supervised withdrawal from Heroin and Xanax. She has completed her Phenobarbital / Subutex taper and is scheduled to be discharged tomorrow to [facility].Pt is A/A/O X 4,received in the hallway,interacting well with peers.Pt c/o having anxiety and joint/muscle aches.Per report, Urine culture results are positive for " Proteus Mirabilis", has placed an order for CIPRO 500 MG Po to start tonight. PRN Medications given on the day shift: Robaxin x2, Motrin, Tylenol, Vistaril and Clonidine.PO fluids encouraged as tolerated. All safety measures in place,call petit is within reach,will continue to monitor.
[2017-11-23 20:00] VITALS: BP 100/63
--- NOTE | 2017-11-23 20:00 | NUR ---
COWS=6 / CIWA=8 PT C/O ANXIETY,GENERALIZED ACHES AND JOINT PAIN.PRN MEDS OFFERED BUT PT STATED THAT SHE WILL TAKE HER MEDS LATER SO SHE CAN SLEEP BETTER.
--- NOTE | 2017-11-23 21:46 | NUR ---
PRN MOTRIN AND VISTARIL GIVEN ORDERED FOR C/O PAIN 6/10 AND ANXIETY, RESPECTIVELY.WILL MONITOR FOR EFFECTIVENESS.
[2017-11-23] MEDS: CIPROFLOXACIN HCL 250 MG TABLET PO SCH (21:48)
--- NOTE | 2017-11-23 22:45 | NUR ---
PRN ASSESSMENT PT IS CALM STATES FEELING BETTER.MOTRIN IS EFFECTIVE.PAIN RELIEVED.WILL CONTINUE TO MONITOR.
--- NOTE | 2017-11-24 | NUR ---
COWS/CIWA DEFERRED PT IS SLEEPING COMFORTABLY IN BED,BREATHING IS EVEN AND NON LABORED.NO S/S OF DISTRESS NOTED.COWS/CIWA DEFERRED, V/S REFUSED.ALL SAFETY MEASURES IN PLACE,CALL BUCK WITHIN REACH.WILL CONTINUE TO MONITOR.
--- NOTE | 2017-11-24 06:45 | NUR ---
END OF SHIFT Patient is a 27 y/o female admitted for a medically supervised withdrawal from Heroin and Xanax. She has completed her Phenobarbital / Subutex taper and is scheduled to be discharged today to [facility]. PRN Medications given : Motrin and Vistaril.Pt was started on Cipro last night.No A/R noted.Last COWS 6,CIWA 8.Pt slept 7 hrs,fluid intake was 500 mls,voided x 2 .PO fluids encouraged as tolerated. All safety measures in place,call petit is within reach,will continue to monitor.
--- NOTE | 2017-11-24 07:12 | NUR ---
Start of Shift: Patient is a 27 yr old female who was admitted to [facility] on 11/18/17 for a medically supervised withdrawal from Opiates ( heroin) and Benzodiazepines( Xanax). She has completed a 5 day Subutex/ Phenobarbital taper and is to be discharged this am to " [facility]". She slept for 8 hours last night, last COWS 6 and CIWA 8, PRN meds given on PM shift : Motrin and Vistaril, she continues on CIPRO for UTI. Continue to follow MD plan for DC and offer support as needed.
[2017-11-24 08:00] VITALS: BP 120/60
[2017-11-24 08:08] VITALS: BP 120/60
[2017-11-24] MEDS: METHOCARBAMOL 750 MG TABLET PO PRN (08:08)
[2017-11-24] MEDS: IBUPROFEN 600 MG TABLET PO PRN (08:08)
[2017-11-24] MEDS: FOLIC ACID 1 MG TABLET PO SCH (08:08)
[2017-11-24] MEDS: HYDROXYZINE PAMOATE 25 MG CAPSULE PO PRN (08:08)
[2017-11-24] MEDS: THIAMINE HCL 100 MG TABLET PO SCH (08:08)
[2017-11-24] MEDS: CLONIDINE HCL 0.1 MG TABLET PO PRN (08:08)
[2017-11-24] MEDS: MULTIVITAMINS,THERAPEUTIC TABLET PO SCH (08:08)
[2017-11-24] MEDS: CIPROFLOXACIN HCL 250 MG TABLET PO SCH (08:09)
--- NOTE | 2017-11-24 08:10 | NUR ---
PRN Medication Motrin 600 MG PO and Robaxin 750 MG PO given for generalized pain 11/11 Vistaril 25 MG PO and Clonidine 0.1 MG PO for increased anxiety
--- NOTE | 2017-11-24 09:10 | NUR ---
PRN Reassess Motrin and Robaxin effective for joint pain , level is now 4/10 Vistaril effective for anxiety per pt report
--- NOTE | 2017-11-24 09:30 | NUR ---
Discharge Note Patient has signed and dated all DC paperwork, All belongings, personal items and prescriptions placed in zip tied belongings bag. VS stable : BP 120/60, HR 69, o2 98%, RR16, T 98.7 Patient states no SI/HI. Lasdt COWS 5 and CIWA 9 @ 0800. Patient ambulated off the unit @ 0926 and was picked up by private car " [facility] " for transport to " [facility]".
== END 2017-11-24 09:35 | disposition other institution (70) | DRG 895 ==
LOC: SRC 13:57
PROVIDERS: ADMIT Family Medicine Addiction Medicine; ATTEND Family Medicine Addiction Medicine
PROC: HZ2ZZZZ Detoxification Services for Substance Abuse Treatment (ICD-10-PCS; principal; 2017-11-18)
PROC: HZ41ZZZ Group Counseling for Substance Abuse Treatment, Behavioral (ICD-10-PCS; 2017-11-21)
DX: F13.230 Sedative, hypnotic or anxiolytic dependence with withdrawal, uncomplicated (principal); F11.23 Opioid dependence with withdrawal; J45.20 Mild intermittent asthma, uncomplicated; M32.9 Systemic lupus erythematosus, unspecified; F41.1 Generalized anxiety disorder; F41.0 Panic disorder [episodic paroxysmal anxiety]; G43.909 Migraine, unspecified, not intractable, without status migrainosus; F32.9 Major depressive disorder, single episode, unspecified
CPT/HCPCS: 36415; 70030-TC; 80307; 80324; 80346; 80361; 83735; 84703; 85025; 86580; 86592; 86705; 86803; 87077; 87086; 87340; 87806; G0480; J8499; Q0163